=== PATIENT | female | born 1965 | race African-American/Black ===

== ENCOUNTER 2017-04-24 09:45 | Inpatient (IN) | payer OTHER ==
[2017-04-24 10:54] VITALS: BMI 29.2
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
[2017-04-24] MEDS ORDERED: MAG HYDROX/AL HYDROX/SIMETH 30 ML UNIT-DOSE CUP PO PRN (13:44)
[2017-04-24] MEDS ORDERED: ACETAMINOPHEN 325 MG TABLET (FP) PO PRN (13:44)
[2017-04-24] MEDS ORDERED: MAGNESIUM CITRATE 300 ML BOTTLE PO PRN (13:44)
[2017-04-24] MEDS ORDERED: hydrOXYzine PAMOATE 25 MG CAPSULE (FP) PO PRN (13:44)
[2017-04-24] MEDS ORDERED: MENTHOL/PHENOL 1 EACH UD MM PRN (13:44)
[2017-04-24] MEDS ORDERED: LOPERAMIDE HCL 2 MG CAPSULE PO PRN (13:44)
[2017-04-24] MEDS ORDERED: P-EPHED 60MG/TRIPROLIDI 2.5MG TABLET PO PRN (13:44)
[2017-04-24] MEDS ORDERED: IBUPROFEN 400 MG TABLET (FP) PO PRN (13:44)
[2017-04-24] MEDS ORDERED: guaiFENesin/D-METHORPHAN HB 10 ML UNIT-DOSE CUPS PO PRN (13:44)
[2017-04-24] MEDS ORDERED: MAGNESIUM HYDROX 2400MG/30ML ORAL SUSPENSION 30 ML CUP PO PRN (13:44)
[2017-04-24] MEDS ORDERED: chlordiazePOXIDE HCL 25 MG CAPSULE PO PRN (13:44)
[2017-04-24] MEDS ORDERED: chlordiazePOXIDE HCL 25 MG CAPSULE PO ONE (14:41)
[2017-04-24] MEDS: LISINOPRIL 10 MG TABLET (FP) PO SCH (15:23)
[2017-04-24] MEDS: chlordiazePOXIDE HCL 25 MG CAPSULE PO SCH ×2 (17:26→22:24)
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
[2017-04-24] MEDS: THIAMINE HCL 100 MG TABLET (FP) PO SCH (22:23)
[2017-04-24] MEDS: risperiDONE 1 MG TABLET (FP) PO SCH (22:24)
[2017-04-25] MEDS: chlordiazePOXIDE HCL 25 MG CAPSULE PO SCH ×4 (05:20→22:47)
[2017-04-25 10:44] LABS: CHLORIDE 106 mmol/L (98-107); POTASSIUM 3.8 mmol/L (3.5-5.1); SODIUM 140 mmol/L (136-145)
[2017-04-25 10:51] LABS: ALBUMIN 2.8 g/dl (3.4-5.0); ALK PHOS 62 U/L (45-117); ANION GAP 3 (8-16); BILIRUBIN,TOTAL 0.4 mg/dL (0.2-1.0); BLOOD UREA NITROGEN 12 mg/dL (7-18); CALCIUM 8.4 mg/dL (8.5-10.1); CO2 31 mmol/L (21-32); CREATININE 0.8 mg/dL (0.55-1.02); GLUCOSE,RANDOM 76 mg/dL (74-106); SGOT/AST 16 U/L (15-37); SGPT/ALT 14 U/L (12-78); TOT PROT 8.4 g/dl (6.4-8.2)
[2017-04-25 10:52] LABS: HEMATOCRIT 39.1 % (32.4-45.2); HEMOGLOBIN 12.7 GM/dL (10.7-15.3); MCH 30.3 pg (25.7-33.7); MCHC 32.5 g/dl (32.0-36.0); MEAN CELL VOLUME 93.3 fl (80-96); MEAN PLT VOLUME 11.4 fl (7.5-11.1); PLATELET COUNT 91 K/MM3 (134-434); RBC 4.19 M/mm3 (3.60-5.2); RDW 13.9 % (11.6-15.6); WHITE BLOOD COUNT 3.1 K/mm3 (4.0-10.0)
[2017-04-25] MEDS: PRENATAL VITAMINS W/ FOLIC ACID TABLET (FP) PO SCH (11:02)
[2017-04-25] MEDS: LISINOPRIL 10 MG TABLET (FP) PO SCH (11:02)
--- NOTE | 2017-04-25 14:56 | PN ---
S CIWA - CIWA Score Nausea/Vomitin Muscle Tremors: 3 Anxiety: 3 Agitation: 3 Paroxysmal Sweats: 3 Orientation: 0-Oriented Tacttile Disturbances: 0-None Auditory Disturbances: 0-None Visual Disturbances: 0-None Headache: 0-None Present CIWA-Ar Total Score: 15 BHS Progress Note (SOAP) Subjective: tremors anxious sweats Objective: 04/25/17 14:55 Vital Signs Temperature 98.2 F 04/25/17 13:52 Pulse Rate 97 H 04/25/17 13:52 Respiratory Rate 16 04/25/17 13:52 Blood Pressure 113/73 04/25/17 13:52 O2 Sat by Pulse Oximetry (%) 04/25/17 04/25/17 08:00 08:00 WBC 3.1 L RBC 4.19 Hgb 12.7 Hct 39.1 MCV 93.3 MCHC 32.5 RDW 13.9 Plt Count 91 L Sodium 140 Potassium 3.8 Chloride 106 Carbon Dioxide 31 Anion Gap 3 L BUN 12 Creatinine 0.8 labs noted. UA pending Assessment: 04/25/17 14:56 withdrawal sx Plan: continue detox
--- NOTE | 2017-04-25 17:03 | EKG ---
Test Reason : Blood Pressure : / mmHG Vent. Rate : 098 BPM Atrial Rate : 098 BPM P-R Int : 132 ms QRS Dur : 066 ms QT Int : 344 ms P-R-T Axes : 045 046 050 degrees QTc Int : 439 ms NORMAL SINUS RHYTHM NORMAL ECG NO PREVIOUS ECGS AVAILABLE Confirmed by LU SCHERER MD ([id number]) on 04/25/2017 5:03:10 PM Referred By: Confirmed By:LU SCHERER MD
[2017-04-25] MEDS: ALBUTEROL SO4 18 GM HFA INHALER IH PRN (19:25)
[2017-04-25] MEDS: THIAMINE HCL 100 MG TABLET (FP) PO SCH (22:47)
[2017-04-25] MEDS: risperiDONE 1 MG TABLET (FP) PO SCH (22:47)
[2017-04-26] MEDS: chlordiazePOXIDE HCL 25 MG CAPSULE PO SCH ×2 (05:45→10:46)
[2017-04-26] MEDS: PRENATAL VITAMINS W/ FOLIC ACID TABLET (FP) PO SCH (10:46)
[2017-04-26] MEDS: LISINOPRIL 10 MG TABLET (FP) PO SCH (10:47)
--- NOTE | 2017-04-26 10:58 | PN ---
[facility] CIWA - CIWA Score Nausea/Vomitin-No Nausea/No Vomiting Muscle Tremors: 3 Anxiety: 3 Agitation: 3 Paroxysmal Sweats: 1-Minimal Palms Moist Orientation: 0-Oriented Tacttile Disturbances: 0-None Auditory Disturbances: 0-None Visual Disturbances: 0-None Headache: 0-None Present CIWA-Ar Total Score: 10 S Progress Note (SOAP) Subjective: tremor anxiety agitation sweat Objective: 04/26/17 10:58 Vital Signs Temperature 97.0 F L 04/26/17 06:00 Pulse Rate 91 H 04/26/17 06:00 Respiratory Rate 16 04/26/17 06:00 Blood Pressure 100/75 04/26/17 06:00 O2 Sat by Pulse Oximetry (%) Laboratory Last Values WBC 3.1 K/mm3 (4.0-10.0) L 04/25/17 08:00 RBC 4.19 M/mm3 (3.60-5.2) 04/25/17 08:00 Hgb 12.7 GM/dL (10.7-15.3) 04/25/17 08:00 Hct 39.1 % (32.4-45.2) 04/25/17 08:00 MCV 93.3 fl (80-96) 04/25/17 08:00 MCH 30.3 pg (25.7-33.7) 04/25/17 08:00 MCHC 32.5 g/dl (32.0-36.0) 04/25/17 08:00 RDW 13.9 % (11.6-15.6) 04/25/17 08:00 Plt Count 91 K/MM3 (134-434) L 04/25/17 08:00 MPV 11.4 fl (7.5-11.1) H 04/25/17 08:00 Sodium 140 mmol/L (136-145) 04/25/17 08:00 Potassium 3.8 mmol/L (3.5-5.1) 04/25/17 08:00 Chloride 106 mmol/L (98-107) 04/25/17 08:00 Carbon Dioxide 31 mmol/L (21-32) 04/25/17 08:00 Anion Gap 3 (8-16) L 04/25/17 08:00 BUN 12 mg/dL (7-18) 04/25/17 08:00 Creatinine 0.8 mg/dL (0.55-1.02) 04/25/17 08:00 Creat Clearance w eGFR > 60 (>60) 04/25/17 08:00 Random Glucose 76 mg/dL (74-106) 04/25/17 08:00 Calcium 8.4 mg/dL (8.5-10.1) L 04/25/17 08:00 Total Bilirubin 0.4 mg/dL (0.2-1.0) 04/25/17 08:00 AST 16 U/L (15-37) 04/25/17 08:00 ALT 14 U/L (12-78) 04/25/17 08:00 Alkaline Phosphatase 62 U/L (45-117) 04/25/17 08:00 Total Protein 8.4 g/dl (6.4-8.2) H 04/25/17 08:00 Albumin 2.8 g/dl (3.4-5.0) L 04/25/17 08:00 RPR Titer Nonreactive (NONREACTIVE) 04/25/17 08:00 lab noted Assessment: 04/26/17 10:58 withdrawal sx Plan: continue detox
[2017-04-26 14:23] LABS: URINE APPEARANCE SLCLOUDY; URINE BILIRUBIN NEGATIVE (NEGATIVE); URINE BLOOD NEGATIVE (NEGATIVE); URINE COLOR LTYELLOW; URINE GLUCOSE (UA) NEGATIVE (NEGATIVE); URINE KETONE NEGATIVE (NEGATIVE); URINE NITRITE NEGATIVE (NEGATIVE); URINE PROTEIN NEGATIVE (NEGATIVE); URINE UROBILINOGEN NEGATIVE mg/dL (0.2-1.0)
[2017-04-26 14:25] LABS: URINE LEUK ESTERASE 1+ (NEGATIVE)
[2017-04-26 14:27] LABS: EPI CELLS RARE /HPF (FEW); URINE BACTERIA FEW /hpf (NONE SEEN); URINE MUCUS RARE
[2017-04-26] MEDS: chlordiazePOXIDE 5 MG CAPSULE PO SCH ×2 (17:29→22:33)
[2017-04-26] MEDS: risperiDONE 1 MG TABLET (FP) PO SCH (22:32)
[2017-04-26] MEDS: THIAMINE HCL 100 MG TABLET (FP) PO SCH (22:32)
[2017-04-26] MEDS: ALBUTEROL SO4 18 GM HFA INHALER IH PRN (22:32)
[2017-04-27] MEDS: chlordiazePOXIDE 5 MG CAPSULE PO SCH ×2 (06:35→10:41)
[2017-04-27] MEDS: PRENATAL VITAMINS W/ FOLIC ACID TABLET (FP) PO SCH (10:40)
[2017-04-27] MEDS: LISINOPRIL 10 MG TABLET (FP) PO SCH (10:41)
--- NOTE | 2017-04-27 14:00 | PN ---
S Progress Note (SOAP) Subjective: ALERT,IRRITABLE,ANXIOUS,INTERRUPTED SLEEP Objective: 04/27/17 13:59 Vital Signs Temperature 97.7 F 04/27/17 11:57 Pulse Rate 100 H 04/27/17 11:57 Respiratory Rate 18 04/27/17 11:57 Blood Pressure 103/75 04/27/17 11:57 O2 Sat by Pulse Oximetry (%) Assessment: 04/27/17 13:59 WITHDRAWAL SYMPTOM Plan: CONTINUE DETOX,DISCHARGE IN AM
[2017-04-27] MEDS: chlordiazePOXIDE HCL 10 MG CAPSULE PO SCH ×2 (17:19→22:44)
[2017-04-27] MEDS: THIAMINE HCL 100 MG TABLET (FP) PO SCH (22:44)
[2017-04-27] MEDS: risperiDONE 1 MG TABLET (FP) PO SCH (22:44)
[2017-04-28] MEDS: chlordiazePOXIDE HCL 10 MG CAPSULE PO SCH (06:03)
[2017-04-28 06:50] VITALS: BP 118/79; PULSE 98; TEMP 97
[2017-04-28] MEDS: LISINOPRIL 10 MG TABLET (FP) PO SCH (09:07)
[2017-04-28] MEDS: PRENATAL VITAMINS W/ FOLIC ACID TABLET (FP) PO SCH (09:07)
--- NOTE | 2017-04-28 12:01 | DS ---
[facility] Detox Discharge Summary Admission Date: 04/24/17 Discharge Date: 04/28/17 - History Present History: Alcohol Dependence - Physical Exam Results Vital Signs: Vital Signs Temperature 97 F L 04/28/17 06:49 Pulse Rate 98 H 04/28/17 06:49 Respiratory Rate 18 04/28/17 06:49 Blood Pressure 118/79 04/28/17 06:49 O2 Sat by Pulse Oximetry (%) - Treatment Hospital Course: Detox Protocol Followed, Detoxed Safely, Responded well, Discharged Condition Good, Rehab Referral Accepted - Medication Discharge Medications: Ambulatory Orders Albuterol Sulfate Inhaler - [Ventolin Hfa Inhaler -] 2 inh PO Q4H PRN 04/24/17 Lisinopril mg PO DAILY 04/24/17 Risperidone [Risperdal] mg PO HS 04/24/17 Trazodone HCl mg PO HS 04/24/17 Unobtainable 04/24/17 - Diagnosis (1) Alcohol dependence with uncomplicated withdrawal Status: Chronic (2) Essential hypertension Status: Chronic (3) HIV (human immunodeficiency virus infection) Status: Chronic (4) History of back surgery Status: Chronic (5) Hypercholesterolemia Status: Chronic (6) Nicotine dependence Status: Chronic Qualifiers: Nicotine product type: cigarettes Substance use status: uncomplicated Qualified Code(s): F17.210 - Nicotine dependence, cigarettes, uncomplicated (7) Old cerebrovascular accident without late effect Status: Chronic (8) Seizure Status: Acute (9) Weight loss Status: Suspected (10) Schizophrenia Status: Chronic - AMA Did Patient Leave Against Medical Advice: No
== END 2017-04-28 09:33 | disposition home or self-care (01) | DRG 775 ==
LOC: YASAS 09:45 → Y6N 13:56
PROVIDERS: ADMIT Internal Medicine; ATTEND Internal Medicine
PROC: HZ2ZZZZ Detoxification Services for Substance Abuse Treatment (ICD-10-PCS; principal; 2017-04-24)
DX: F10.230 Alcohol dependence with withdrawal, uncomplicated (principal); F17.210 Nicotine dependence, cigarettes, uncomplicated; F20.9 Schizophrenia, unspecified; I10 Essential (primary) hypertension; Z21 Asymptomatic human immunodeficiency virus [HIV] infection status; E78.00 Pure hypercholesterolemia, unspecified; J44.9 Chronic obstructive pulmonary disease, unspecified; G40.909 Epilepsy, unspecified, not intractable, without status epilepticus; Z86.73 Personal history of transient ischemic attack (TIA), and cerebral infarction without residual deficits; Z88.0 Allergy status to penicillin; Z88.1 Allergy status to other antibiotic agents; Z88.5 Allergy status to narcotic agent; Z87.898 Personal history of other specified conditions
CPT/HCPCS: 36415; 80053; 81003; 81015; 85027; 86593; 93005; 93010; J2794